=== PATIENT | male | born 1980 ===

== ENCOUNTER 2019-10-23 02:55 | Emergency (ER) | payer OTHER ==
[2019-10-23 03:58] LABS: Basophils % 0.3 % (0-1.3); Hematocrit 40.8 % (39.6-49.0); Lymphocytes % 37.1 % (15.3-44.8); MPV 8.3 fL (7.6-11.3); RBC Red Blood Cell Count 4.98 M/uL (4.33-5.43)
[2019-10-23 04:09] LABS: Protime INR 1.03
[2019-10-23 04:26] LABS: ALT/SGPT 32 U/L (12-78); AST/SGOT 28 U/L (15-37); Albumin 4.4 g/dL (3.4-5.0); Alkaline Phosphatase 71 U/L (45-117); BUN Blood Urea Nitrogen 13 mg/dL (7-18); Bicarbonate 25 mmol/L (21-32); Bilirubin Direct < 0.1 mg/dL (0-0.2); Bilirubin Total 0.4 mg/dL (0.2-1.0); Glucose Level 114 mg/dL (74-106); Potassium 4.2 mmol/L (3.5-5.1); Protein, Total 8.6 g/dL (6.4-8.2); Sodium Level 140 mmol/L (136-145)
[2019-10-23 04:33] LABS: Barbiturates NEGATIVE (NEGATIVE); Benzodiazepines NEGATIVE (NEGATIVE); Cocaine NEGATIVE (NEGATIVE); METHAMPHETAM NEGATIVE (NEGATIVE); Methadone NEGATIVE (NEGATIVE); Opiates NEGATIVE (NEGATIVE); Phencyclidine NEGATIVE (NEGATIVE); THC Cannibis NEGATIVE (NEGATIVE)
[2019-10-23 05:15] LABS: Urine Blood NEGATIVE (NEG); Urine Glucose NEGATIVE (NEG)
[2019-10-23 05:16] LABS: Urine Protein NEGATIVE (NEG)
--- NOTE | 2019-10-23 07:08 | EDPHYS ---
Physician Documentation [facility] Name: Darian Larose Jr Age: 39 yrs Sex: Male : 1980 Arrival Date: 10/23/2019 Time: 03:00 Bed 16 Private MD: ED Physician Joe Tatum HPI: 10/22 03:35 This 39 yrs old Male presents to ER via Law Enforcement with complaints of mh7 Depression.Suicidal Ideation. 03:35 The patient presents to the emergency department with depression, over a relationship, mh7 Family problems, suicide ideation, and the patient has a plan, to overdose with medications. Onset: The symptoms/episode began/occurred today. Past psychiatric history: Prior diagnosis: bipolar disorder, Psychiatric medications include: Primary psychiatric physician: the patient has had a prior suicide gesture. Associated signs and symptoms: Pertinent negatives: abdominal pain, anxiety, chest pain, chills, delusions, fever, hallucinations, headache, homicidal ideation, nausea, night sweats, palpitations, paranoia, shortness of breath, substance abuse, tremor, vomiting. Severity of symptoms: At their worst the symptoms were severe today, in the emergency department the symptoms have improved moderately. The patient has experienced similar episodes in the past, multiple times. Historical: - Allergies: 03:02 Tegretol (itching); jb4 - Home Meds: 03:02 Humulin 70/30 100 unit/mL (70-30) Sub-Q susp [Active]; Levemir 100 unit/mL subcutaneous jb4 soln [Active]; Metformin Oral [Active]; b/p meds [Active]; psych medications [Active]; - PMHx: 03:02 Diabetes - IDDM; HTN; Bipolar disorder; impulse control disorder; jb4 - PSHx: 03:02 None; jb4 - Immunization history:: Adult Immunizations up to date. - Social history:: Smoking status: Patient denies any tobacco usage or history of. Patient/guardian denies using alcohol, street drugs. ROS: 03:35 Constitutional: Negative for fever, chills, and weight loss, Eyes: Negative for injury, mh7 pain, redness, and discharge, ENT: Negative for injury, pain, and discharge, Neck: Negative for injury, pain, and swelling, Cardiovascular: Negative for chest pain, palpitations, and edema, Respiratory: Negative for shortness of breath, cough, wheezing, and pleuritic chest pain, Abdomen/GI: Negative for abdominal pain, nausea, vomiting, diarrhea, and constipation, Back: Negative for injury and pain, : Negative for injury, bleeding, discharge, and swelling, MS/Extremity: Negative for injury and deformity, Skin: Negative for injury, rash, and discoloration, Neuro: Negative for headache, weakness, numbness, tingling, and seizure, Allergy/Immunology: Negative for hives, rash, and allergies, Endocrine: Negative for neck swelling, polydipsia, polyuria, polyphagia, and marked weight changes, Hematologic/Lymphatic: Negative for swollen nodes, abnormal bleeding, and unusual bruising. Exam: 03:35 Constitutional: This is a well developed, well nourished patient who is awake, alert, mh7 and in no acute distress. Head/Face: Normocephalic, atraumatic. Eyes: Pupils equal round and reactive to light, extra-ocular motions intact. Lids and lashes normal. Conjunctiva and sclera are non-icteric and not injected. Cornea within normal limits. Periorbital areas with no swelling, redness, or edema. Neck: Trachea midline, no thyromegaly or masses palpated, and no cervical lymphadenopathy. Supple, full range of motion without nuchal rigidity, or vertebral point tenderness. No Meningismus. Chest/axilla: Normal chest wall appearance and motion. Nontender with no deformity. No lesions are appreciated. Cardiovascular: Regular rate and rhythm with a normal S1 and S2. No gallops, murmurs, or rubs. Normal PMI, no JVD. No pulse deficits. Respiratory: Lungs have equal breath sounds bilaterally, clear to auscultation and percussion. No rales, rhonchi or wheezes noted. No increased work of breathing, no retractions or nasal flaring. Abdomen/GI: Soft, non-tender, with normal bowel sounds. No distension or tympany. No guarding or rebound. No evidence of tenderness throughout. Back: No spinal tenderness. No costovertebral tenderness. Full range of motion. Skin: Warm, dry with normal turgor. Normal color with no rashes, no lesions, and no evidence of cellulitis. MS/ Extremity: Pulses equal, no cyanosis. Neurovascular intact. Full, normal range of motion. Neuro: Awake and alert, GCS 15, oriented to person, place, time, and situation. Cranial nerves II-XII grossly intact. Motor strength 5/5 in all extremities. Sensory grossly intact. Cerebellar exam normal. Normal gait. 03:35 Psych: Behavior/mood is cooperative, suicidal, depressed, Affect is calm, Oriented to person, place, time, Patient having thoughts of suicide. Plan for suicide is overdose on pills Judgement / Insight is impaired. Memory is normal. Delusions/hallucinations are not present. 06:34 ECG was reviewed by the Attending Physician. [facility] Vital Signs: 03:02 BP 136 / 104; Pulse 71; Resp 16; Temp 98.2(O); Pulse Ox 96% on R/A; Weight 138.8 kg jb4 (R); Height 6 ft. 1 in. (185.42 cm) (R); Pain 0/10; 04:00 BP 142 / 91; Pulse 77; Resp 16; Pulse Ox 97% on R/A; jb4 05:00 BP 141 / 109; Pulse 71; Resp 16; Pulse Ox 96% on R/A; jb4 06:00 BP 144 / 105; Pulse 73; Resp 16; Pulse Ox 97% on R/A; jb4 06:30 BP 133 / 94; Pulse 77; Resp 16; Pulse Ox 96% on R/A; jb4 07:00 BP 144 / 108; Pulse 77; Resp 16; Temp 98.5; Pulse Ox 96% ; bp 03:02 Body Mass Index 40.37 (138.80 kg, 185.42 cm) jb4 MDM: 03:17 Patient medically screened. [facility] 07:03 Differential diagnosis: depression, Suicidal Ideation, Substance abuse. Data reviewed: [facility] vital signs, nurses notes, lab test result(s), CBC, electrolytes, urinalysis, EKG. Data interpreted: Pulse oximetry: on room air is 96 %. Interpretation: normal. Counseling: I had a detailed discussion with the patient and/or guardian regarding: the historical points, exam findings, and any diagnostic results supporting the discharge/admit diagnosis, the presence of at least one elevated blood pressure reading (>120/80) during this emergency department visit, lab results. Response to treatment: the patient's symptoms have markedly improved after treatment. ED course: Patient to be released back into custody of correctional officers and will obtain psychiatric evaluation in their psychiatric unit.. 10/22 03:17 Order name: Acetaminophen; Complete Time: 04:42 10/22 03:17 Order name: Basic Metabolic Panel; Complete Time: 04:42 10/22 03:17 Order name: CBC with Diff; Complete Time: 04:42 10/22 03:17 Order name: ETOH Level; Complete Time: 04:42 10/22 03:17 Order name: Hepatic Function; Complete Time: 04:42 10/22 03:17 Order name: PT-INR; Complete Time: 04:42 10/22 03:17 Order name: Ptt, Activated; Complete Time: 04:42 10/22 03:17 Order name: Salicylate; Complete Time: 04:42 10/22 03:17 Order name: Urine Drug Screen; Complete Time: 04:42 10/22 03:17 Order name: EKG; Complete Time: 03:18 10/22 03:17 Order name: EKG - Nurse/Tech; Complete Time: 04:07 10/22 03:17 Order name: IV Saline Lock; Complete Time: 04:07 10/22 03:17 Order name: Labs collected and sent; Complete Time: 04:07 10/22 04:14 Order name: Urine Dipstick--Ancillary (enter results); Complete Time: 06:07 [facility] 10/22 03:17 Order name: Urine Dipstick-Ancillary (obtain specimen); Complete Time: 04:07 7 EC:34 Rate is 71 beats/min. Rhythm is regular, Normal Sinus Rhythm. QRS [place] is Normal. [place] mh7 interval is normal. QRS interval is normal. QT interval is normal. No Q waves. T waves are Normal. No ST changes noted. Clinical impression: Normal ECG. Administered Medications: No medications were administered Disposition: 10/23/19 07:06 Discharged to Home. Impression: Depression, Suicidal Ideation. - Condition is Stable. - Discharge Instructions: Major Depressive Disorder, Covh-hq-Mind. - Medication Reconciliation Form, Thank You Letter, Antibiotic Education, Prescription Opioid Use form. - Follow up: Private Physician; When: Today; Reason: Recheck today's complaints, Continuance of care, Re-evaluation by your physician. - Problem is an acute exacerbation. - Symptoms have improved. Signatures: Dispatcher [employer] EDMS Reynaldo Ochoa RN RN jb4 Alfred Mckeon RN RN bp Joe Tatum MD MD mh7 Corrections: (The following items were deleted from the chart) 08:22 07:06 10/23/2019 07:06 Discharged to Home. Impression: Depression; Suicidal Ideation. bp Condition is Stable. Forms are Medication Reconciliation Form, Thank You Letter, Antibiotic Education, Prescription Opioid Use. Follow up: Private Physician; When: Today; Reason: Recheck today's complaints, Continuance of care, Re-evaluation by your physician. Problem is an acute exacerbation. Symptoms have improved. mh7
--- NOTE | 2019-10-23 07:08 | ER ---
Nurse's Notes [facility] Name: Darian Larose Jr Age: 39 yrs Sex: Male : 1980 Arrival Date: 10/23/2019 Time: 03:00 Bed 16 Private MD: Diagnosis: Depression;Suicidal Ideation Presentation: 10/22 03:02 Chief complaint: Patient states: I have been having suicidal thoughts. I took some jb4 pills, I 2 types down before they sprayed me. I am having some family issues. Coronavirus screen: Proceed with normal triage. Ebola Screen: No symptoms or risks identified at this time. Initial Sepsis Screen: Does the patient meet any 2 criteria? No. Patient's initial sepsis screen is negative. Does the patient have a suspected source of infection? No. Patient's initial sepsis screen is negative. Risk Assessment: Do you want to hurt yourself or someone else? Patient reports no desire to harm self or others. Onset of symptoms was October 23, 2019. Transition of care: patient was not received from another setting of care. 03:02 Method Of Arrival: Law Enforcement: [place] [employer] jb4 03:02 Acuity: MURTAZA 2 jb4 Historical: - Allergies: 03:02 Tegretol (itching); jb4 - Home Meds: 03:02 Humulin 70/30 100 unit/mL (70-30) Sub-Q susp [Active]; Levemir 100 unit/mL subcutaneous jb4 soln [Active]; Metformin Oral [Active]; b/p meds [Active]; psych medications [Active]; - PMHx: 03:02 Diabetes - IDDM; HTN; Bipolar disorder; impulse control disorder; jb4 - PSHx: 03:02 None; jb4 - Immunization history:: Adult Immunizations up to date. - Social history:: Smoking status: Patient denies any tobacco usage or history of. Patient/guardian denies using alcohol, street drugs. Screenin:02 Abuse screen: Denies threats or abuse. Nutritional screening: No deficits noted. jb4 Tuberculosis screening: No symptoms or risk factors identified. Fall Risk None identified. Assessment: 03:02 General: Appears in no apparent distress. uncomfortable, Behavior is calm, cooperative, jb4 appropriate for age. Pain: Denies pain. Neuro: Level of Consciousness is awake, alert, obeys commands, Oriented to person, place, time, situation. Cardiovascular: Patient's skin is warm and dry. Respiratory: Airway is patent Respiratory effort is even, unlabored, Respiratory pattern is regular, symmetrical. GI: No signs and/or symptoms were reported involving the gastrointestinal system. : No signs and/or symptoms were reported regarding the genitourinary system. EENT: No signs and/or symptoms were reported regarding the EENT system. Derm: Skin is intact, Skin is dry, Skin is normal, Skin temperature is warm. Musculoskeletal: Circulation, motion, and sensation intact. Range of motion: intact in all extremities. 03:30 Reassessment: Asked if one hand cuff could be removed for IV insertion. Guard states " jb4 No, he is violent." Pt states " I bet I could make you shoot me right now huh" guard states " Yea I could shoot you, I know how to handle you.". 04:19 Reassessment: Patient appears in no apparent distress at this time. Patient and/or jb4 family updated on plan of care and expected duration. Pain level reassessed. Patient is alert, oriented x 3, equal unlabored respirations, skin warm/dry/pink. correctional officers remain at the bedside. 05:19 Reassessment: Patient appears in no apparent distress at this time. No changes from jb4 previously documented assessment. Patient and/or family updated on plan of care and expected duration. Pain level reassessed. Patient is alert, oriented x 3, equal unlabored respirations, skin warm/dry/pink. 06:02 Reassessment: Patient appears in no apparent distress at this time. Patient and/or jb4 family updated on plan of care and expected duration. Pain level reassessed. Patient is alert, oriented x 3, equal unlabored respirations, skin warm/dry/pink. Correctional officers remain at the bedside. 06:30 Reassessment: Patient appears in no apparent distress at this time. No changes from jb4 previously documented assessment. Patient and/or family updated on plan of care and expected duration. Pain level reassessed. 07:00 Reassessment: RECD REPORT FROM LUIS F IABRRA. 39YO WM P/W SI AND OVERDOSE FROM [facility] bp UNIT. PT MEDICALLY CLEARED FOR RETURN UNDER SUICIDE WATCH. TRANSPORT PENDING. 08:21 Reassessment: PT D/C VIA [facility] TRANSPORT. bp Psych: 03:13 Subjective: Patient's mood is sad, Delusions are denied, Hallucinations are denied jb4 Having thoughts of suicide. Objective: Patient is cooperative, Speech is normal, Affect is blunted. Interventions: PT in custody of law enforcement. Suicide Risk Assessment: Sad Person Scale: Sex of patient: Male: Score 1 point. Age of patient: Score 0 point if patient falls outside of specified age parameters. Depression: Score 1 point if signs of depression are present. Previous Attempt: Score 1 point if patient has previously attempted suicide. Substance Abuse: Score 0 point if patient does not abuse alcohol or drugs. Rational Thinking: Score 1 point if patient is lacking rational thinking. Social Support: Score 1 point if social support is lacking and/or unavailable. Organized Plan: Score 1 point if patient had a plan in place. Relationship: Score 1 point if patient is , , , or for a single male Chronic Sickness: Score 1 point if patient has illness, chronic, debilitating, or severe. TOTAL POINTS: If total points are 7-10, the proposed clinical action is to hospitalize or commit. Implement suicide precautions. Safety Checks: Personal items have been removed. Door is open. [employer] guards present. Pt denies substance abuse. Commitment: Patient will be an involuntary commitment. Vital Signs: 03:02 BP 136 / 104; Pulse 71; Resp 16; Temp 98.2(O); Pulse Ox 96% on R/A; Weight 138.8 kg jb4 (R); Height 6 ft. 1 in. (185.42 cm) (R); Pain 0/10; 04:00 BP 142 / 91; Pulse 77; Resp 16; Pulse Ox 97% on R/A; jb4 05:00 BP 141 / 109; Pulse 71; Resp 16; Pulse Ox 96% on R/A; jb4 06:00 BP 144 / 105; Pulse 73; Resp 16; Pulse Ox 97% on R/A; jb4 06:30 BP 133 / 94; Pulse 77; Resp 16; Pulse Ox 96% on R/A; jb4 07:00 BP 144 / 108; Pulse 77; Resp 16; Temp 98.5; Pulse Ox 96% ; bp 03:02 Body Mass Index 40.37 (138.80 kg, 185.42 cm) 4 ED Course: 03:00 Patient arrived in ED. ag3 03:02 Reynaldo Ochoa, RN is Primary Nurse. jb4 03:02 Arm band placed on right wrist. jb4 03:02 Patient has correct armband on for positive identification. Bed in low position. Call jb4 light in reach. Side rails up X 1. Pulse ox on. NIBP on. 03:04 Triage completed. jb4 03:08 Joe Tatum MD is Attending Physician. [facility] 03:30 Initial lab(s) drawn, by az, sent to lab. Inserted saline lock: 20 gauge in right jb4 antecubital area, using aseptic technique. Blood collected. 08:21 No provider procedures requiring assistance completed. IV discontinued, intact, bp bleeding controlled, No redness/swelling at site. Pressure dressing applied. Administered Medications: No medications were administered Outcome: 07:06 Discharge ordered by . 7 08:21 Discharged to Law Enforcement bp 08:21 Condition: stable 08:21 Discharge instructions given to patient, police, Instructed on discharge instructions, follow up and referral plans. Demonstrated understanding of instructions, follow-up care. 08:22 Patient left the ED. bp Signatures: Reynaldo Ochoa, RN RN jb Alfred Mckeon RN RN bp Layne Torres ag3 Joe Tatum MD MD [facility] Corrections: (The following items were deleted from the chart) 04:20 04:19 Reassessment: Patient appears in no apparent distress at this time. Patient jb4 and/or family updated on plan of care and expected duration. Pain level reassessed. Patient is alert, oriented x 3, equal unlabored respirations, skin warm/dry/pink. jb4
[2019-10-23 08:38] VITALS: O2SAT 96
[2019-10-23 08:40] VITALS: BP 144/108; TEMP 98.5
== END 2019-10-23 08:22 | disposition home or self-care (01) ==
LOC: ER 02:55
DX: R45.851 Suicidal ideations (principal); E11.9 Type 2 diabetes mellitus without complications; I10 Essential (primary) hypertension; F31.9 Bipolar disorder, unspecified; Z88.8 Allergy status to other drugs, medicaments and biological substances
CPT/HCPCS: 36415; 80048; 80076; 80307; 80320; 80329; 81003; 85025; 85610; 85730; 93005; 99284

== ENCOUNTER 2019-10-23 18:22 | Emergency (ER) | payer OTHER ==
--- OUTSIDE RECORDS SUMMARY | 2019-10-23 18:54 | XMS REPORT | Continuity of Care Document ---
:1980 Author Organization [facility] t Address [address] [place] [address] Care Team Providers Name Role Phone Lonnie Allen Attending Clinician Unavailable Lonnie Allen Admitting Clinician Unavailable Problems This patient has no known problems. Allergies, Adverse Reactions, Alerts This patient has no known allergies or adverse reactions. Medications This patient has no known medications. Procedures This patient has no known procedures. Results Test Description Test Time Test Comments Results Result Comments Source Chemistry - Urine 2016-12-17 09:55:00 Test Item Value Reference Range Interpretation Comme nts Chemistry - Urine (test code = 88.77 mg/dL 63-166 N NOTE: Concentration is based on a URCREAT) daily urine out put of1.5 Liters. Chemistry - [id number] 09:55:00 Test Item Value Reference Range Interpretation Comments Chemistry - Urine (test code = 121 mmol/L Not Available URNA) Chemistry - [id number] 09:55:00 Test Item Value Reference Range Interpretation Comments Chemistry - Urine (test Less than 10 mg/dL code = URTP) [id number] 08:28:00 Test Item Value Reference Range Interpretation Comments Chemistry (test code = URAC) 9.1 mg/dL 3.5-7.2 H [id number] 07:07:00 Test Item Value Reference Range Interpretation Comments Chemistry (test code 139 mmol/L 136-145 N = NA-T) Chemistry (test code 4.2 mmol/L 3.5-5.1 N = K-T) Chemistry (test code 108 mmol/L 98-107 H = CL) Chemistry (test code 22 mmol/L 22-29 N = CO2) Chemistry (test code 13 mmol/L 10-20 N = ANGP) Chemistry (test code 19 mg/dL 8.9-20.6 N = BUN) Chemistry (test code 1.38 mg/dL 0.6-1.3 H = CREATT) Chemistry (test code 71 Referen ce Range for = EGFRMDRD) Estimated GFR: Great er than 90 mL/min/1.73 m2NOTE:The MDRD equation has no t been validated for u se with theelderly (ove r 70 years of age), women, patientswith se rious comorbid condit ion or persons with ex tremes ofbody size, mu scle mass, or nutrit ional status. Chemistry (test code 13.77 = BCR) Chemistry (test code 106 mg/dL 70-105 H = GLU-T) Chemistry (test code 8.2 mg/dL 7.8-10.44 N = CA) Chemistry (test code 3.8 g/dL 3.5-5.0 N = ALB) Chemistry (test code 2.7 mg/dL 2.3-4.7 N = PHOS) [id number] 07:07:00 Test Item Value Reference Range Interpretation Comments Chemistry (test code = CK) 906 U/L 30-200 H [id number] 05:58:00 Test Item Value Reference Range Interpretation Comments Hematology (test code = WBCT) 6.4 thou/uL 4.8-10.8 N Hematology (test code = RBCT) 4.30 mill/uL 4.70-6.10 L Hematology (test code = HGBT) 12.7 g/dL 14.0-18.0 L Hematology (test code = HCTT) 38.7 % 42.0-52.0 L Hematology (test code = MCV) 90.1 fl 80.0-94.0 N Hematology (test code = MCH) 29.6 pg 27.0-31.0 N Hematology (test code = MCHC) 32.8 g/dL 32.0-36.0 N Hematology (test code = RDW) 12.3 % 11.5-14.5 N Hematology (test code = PLTT) 184 thou/uL 130-400 N Hematology (test code = MPV) 7.9 fL 7.4-10.4 N Hematology (test code = %NEUT) 43.8 % 42.0-75.0 N Hematology (test code = %LYMPH) 39.0 % 21.0-51.0 N Hematology (test code = %MONO) 10.7 % 0.0-10.0 H Hematology (test code = %EOS) 5.3 % 0.0-10.0 N Hematology (test code = %BASO) 1.3 % 0.0-1.0 H Hematology (test code = NEUT#) 2.8 thou/uL 1.40-6.50 N Hematology (test code = LYMPH#) 2.5 thou/uL 1.20-3.40 N Hematology (test code = MONO#) 0.7 thou/uL 0.11-0.59 H Hematology (test code = EOS#) 0.3 thou/uL 0.0-0.7 N Hematology (test code = BASO#) 0.1 thou/uL 0.0-0.2 N [id number] 05:46:00 Test Item Value Reference Range Interpretation Comments Urinalysis (test code = YELLOW Yellow UACLR) Urinalysis (test code = CLOUDY Clear UACLY) Urinalysis (test code = 1.021 1.002-1.036 N SPGR) Urinalysis (test code = 5.5 5.0-9.0 N SAGRARIO) Urinalysis (test code = Negative Negative UALEU) Urinalysis (test code = Negative Negative UANIT) Urinalysis (test code = 30 mg/dL Neg-Trace A PROUADIP) Urinalysis (test code = Negative mg/dL Negative GLUCU) Urinalysis (test code = Trace mg/dL Negative A KETU) Urinalysis (test code = 1.0 mg/dL 0.2-1.0 UAUROB) Urinalysis (test code = Negative Negative UABIL) Urinalysis (test code = Negative Negative UABLD) Urinalysis (test code = 0-3 HPF 0-3 UARBC) Urinalysis (test code = 0-3 HPF 0-3 UAWBC) Urinalysis (test code = 0-3 HPF 0-3 UASQUAM) Urinalysis (test code = None Seen HPF None Seen UABAC) Urinalysis (test code = RARE CA OXALATE HPF Negative UACRST) Urinalysis (test code = 11-20 HYALINE CASTS 0-3 Hyaline A UACAST) [facility] Urine Source: Urine [id number] 04:00:00 Test Item Value Reference Range Interpretation Comments Chemistry (test code 135 mmol/L 136-145 L = NA-T) Chemistry (test code 4.4 mmol/L 3.5-5.1 N = K-T) Chemistry (test code 99 mmol/L 98-107 N = CL) Chemistry (test code 17 mmol/L 22-29 L = CO2) Chemistry (test code 19 mmol/L 10-20 N = ANGP) Chemistry (test code 44 mg/dL 8.9-20.6 H = BUN) Chemistry (test code 4.48 mg/dL 0.6-1.3 H = CREATT) Chemistry (test code 18 Referen ce Range for = EGFRMDRD) Estimated GFR: Great er than 90 mL/min/1.73 m2NOTE:The MDRD equation has no t been validated for u se with theelderly (ove r 70 years of age), women, patientswith se rious comorbid condit ion or persons with ex tremes ofbody size, mu scle mass, or nutrit ional status. Chemistry (test code 121 mg/dL 70-105 H = GLU-T) Chemistry (test code 9.9 mg/dL 7.8-10.44 N = CA) Chemistry (test code 0.5 mg/dL 0.2-1.2 N = TBILI) Chemistry (test code 8.4 g/dL 6.0-8.3 H = TP) Chemistry (test code 4.8 g/dL 3.5-5.0 N = ALB) Chemistry (test code 4.2 g/dL 2.4-3.5 H = GLOB) Chemistry (test code 1.1 g/dL 1.2-2.2 L = AG) Chemistry (test code 51 U/L 40-150 N = ALP) Chemistry (test code 29 U/L 5-34 N = AST) Chemistry (test code 27 U/L 8-55 N = ALT) [id number] 04:00:00 Test Item Value Reference Range Interpretation Comments Chemistry (test code = CK) 1152 U/L 30-200 H [id number] 04:00:00 Test Item Value Reference Range Interpretation Comments Chemistry (test code = LIP) 19 U/L 8-78 N [id number] 02:34:00 Test Item Value Reference Range Interpretation Comments Hematology (test code = WBCT) 10.9 thou/uL 4.8-10.8 H Hematology (test code = RBCT) 5.31 mill/uL 4.70-6.10 N Hematology (test code = HGBT) 15.7 g/dL 14.0-18.0 N Hematology (test code = HCTT) 47.7 % 42.0-52.0 N Hematology (test code = MCV) 90.0 fl 80.0-94.0 N Hematology (test code = MCH) 29.6 pg 27.0-31.0 N Hematology (test code = MCHC) 32.9 g/dL 32.0-36.0 N Hematology (test code = RDW) 12.7 % 11.5-14.5 N Hematology (test code = PLTT) 242 thou/uL 130-400 N Hematology (test code = MPV) 8.0 fL 7.4-10.4 N Hematology (test code = %NEUT) 63.5 % 42.0-75.0 N Hematology (test code = %LYMPH) 22.7 % 21.0-51.0 N Hematology (test code = %MONO) 9.0 % 0.0-10.0 N Hematology (test code = %EOS) 3.5 % 0.0-10.0 N Hematology (test code = %BASO) 1.2 % 0.0-1.0 H Hematology (test code = NEUT#) 6.9 thou/uL 1.40-6.50 H Hematology (test code = LYMPH#) 2.5 thou/uL 1.20-3.40 N Hematology (test code = MONO#) 1.0 thou/uL 0.11-0.59 H Hematology (test code = EOS#) 0.4 thou/uL 0.0-0.7 N Hematology (test code = BASO#) 0.1 thou/uL 0.0-0.2 N Influenza A B Ag [id number] 02:12:00 Test Item Value Reference Range Interpretation Comments Influenza A B Ag The rapid Flu A B test Screen (test code = can distinguish between FLU) influenza A Influenza A B Ag follow up confirmatory Screen (test code = testing is warranted. FLU1) Influenza A B Ag FLUB N Screen (test code = FLU1) Influenza A B Ag N N Screen (test code = FLU1) [id number] 01:42:00 Test Item Value Reference Range Interpretation Comments Accuchek (test code = ACU) 154 mg/dL 70-110 H
[2019-10-23 19:17] LABS: Barbiturates NEGATIVE (NEGATIVE); Benzodiazepines NEGATIVE (NEGATIVE); Cocaine NEGATIVE (NEGATIVE); METHAMPHETAM NEGATIVE (NEGATIVE); Methadone NEGATIVE (NEGATIVE); Opiates NEGATIVE (NEGATIVE); Phencyclidine NEGATIVE (NEGATIVE); THC Cannibis NEGATIVE (NEGATIVE)
[2019-10-23 19:31] LABS: Urine Blood NEGATIVE (NEG); Urine Glucose NEGATIVE (NEG); Urine Protein NEGATIVE (NEG); Urine pH 6.5 (5.0-7.0)
[2019-10-23 19:34] LABS: Hematocrit 38.3 % (39.6-49.0); MPV 8.4 fL (7.6-11.3); RBC Red Blood Cell Count 4.61 M/uL (4.33-5.43)
[2019-10-23 19:35] LABS: Protime INR 1.05
[2019-10-23 19:54] LABS: ALT/SGPT 32 U/L (12-78); AST/SGOT 25 U/L (15-37); Albumin 4.1 g/dL (3.4-5.0); Alkaline Phosphatase 61 U/L (45-117); BUN Blood Urea Nitrogen 15 mg/dL (7-18); Bicarbonate 23 mmol/L (21-32); Bilirubin Direct < 0.1 mg/dL (0-0.2); Bilirubin Total 0.4 mg/dL (0.2-1.0); Glucose Level 103 mg/dL (74-106); Protein, Total 7.9 g/dL (6.4-8.2); Sodium Level 137 mmol/L (136-145)
--- NOTE | 2019-10-23 21:06 | EDPHYS ---
Physician Documentation [facility] Name: Darian Larose Jr Age: 39 yrs Sex: Male : 1980 Arrival Date: 10/23/2019 Time: 18:23 Bed 3 Private MD: ED Physician Db Jett HPI: 10/22 19:19 This 39 yrs old Male presents to ER via EMS with complaints of Overdose. jr8 19:19 The patient presents to the emergency department after a known overdose, that was jr8 intentional. Context: Method: the patient has a confirmed or suspected ingestion, omeprazole and Benadryl , Time: 4 hour(s) ago, Extent: took 15 of both, the OD/poisoning occurred at skilled nursing. Associated signs and symptoms: Pertinent positives: tiredness. Severity of symptoms: At their worst the symptoms were mild in the emergency department the symptoms are unchanged. It is unknown whether or not the patient has had similar symptoms in the past. The patient has been recently seen by a physician:. Patient stated that he was on suicide watch at [facility] and got a hold of pills from a friend to try and commit suicide. Complains of tiredness only. Historical: - Allergies: 18:32 Tegretol (Itching); ph - Home Meds: 18:32 B/P Meds [Active]; Humulin 70/30 100 unit/mL (70-30) Sub-Q susp [Active]; Levemir 100 ph unit/mL subcutaneous soln [Active]; Metformin Oral [Active]; psych medications [Active]; - PMHx: 18:32 Bipolar disorder; Diabetes - IDDM; HTN; IMPULSE CONTROL DISORDER; ph - PSHx: 18:32 None; ph - Immunization history:: Adult Immunizations up to date. - Social history:: Smoking status: unknown. ROS: 19:19 Eyes: Negative for injury, pain, redness, and discharge, ENT: Negative for injury, jr8 pain, and discharge, Neck: Negative for injury, pain, and swelling, Cardiovascular: Negative for chest pain, palpitations, and edema, Respiratory: Negative for shortness of breath, cough, wheezing, and pleuritic chest pain, Abdomen/GI: Negative for abdominal pain, nausea, vomiting, diarrhea, and constipation, Back: Negative for injury and pain, MS/Extremity: Negative for injury and deformity, Skin: Negative for injury, rash, and discoloration, Neuro: Negative for headache, weakness, numbness, tingling, and seizure. 19:19 Psych: Positive for suicide gesture, suicidal ideation. Exam: 19:19 Eyes: Pupils equal round and reactive to light, extra-ocular motions intact. Lids and jr8 lashes normal. Conjunctiva and sclera are non-icteric and not injected. Cornea within normal limits. Periorbital areas with no swelling, redness, or edema. ENT: Nares patent. No nasal discharge, no septal abnormalities noted. Tympanic membranes are normal and external auditory canals are clear. Oropharynx with no redness, swelling, or masses, exudates, or evidence of obstruction, uvula midline. Mucous membranes moist. Neck: Trachea midline, no thyromegaly or masses palpated, and no cervical lymphadenopathy. Supple, full range of motion without nuchal rigidity, or vertebral point tenderness. No Meningismus. Cardiovascular: Regular rate and rhythm with a normal S1 and S2. No gallops, murmurs, or rubs. Normal PMI, no JVD. No pulse deficits. Respiratory: Lungs have equal breath sounds bilaterally, clear to auscultation and percussion. No rales, rhonchi or wheezes noted. No increased work of breathing, no retractions or nasal flaring. Abdomen/GI: Soft, non-tender, with normal bowel sounds. No distension or tympany. No guarding or rebound. No evidence of tenderness throughout. Back: No spinal tenderness. No costovertebral tenderness. Full range of motion. Skin: Warm, dry with normal turgor. Normal color with no rashes, no lesions, and no evidence of cellulitis. MS/ Extremity: Pulses equal, no cyanosis. Neurovascular intact. Full, normal range of motion. Neuro: Awake and alert, GCS 15, oriented to person, place, time, and situation. Cranial nerves II-XII grossly intact. Motor strength 5/5 in all extremities. Sensory grossly intact. Cerebellar exam normal. Normal gait. 19:19 Psych: Behavior/mood is cooperative, suicidal, Affect is calm, Oriented to person, place, time, Patient having thoughts of suicide. Judgement / Insight is impaired. Memory is normal. Delusions/hallucinations are not present. 19:24 ECG was reviewed by the Attending Physician. jr8 Vital Signs: 18:25 BP 135 / 96; Pulse 82; Resp 18; Temp 97.3; Pulse Ox 97% on R/A; Weight 138.8 kg; Height ph 6 ft. 1 in. (185.42 cm); Pain 0/10; 19:21 BP 130 / 95; Pulse 79; Resp 18; Pulse Ox 100% on R/A; mg2 20:20 BP 127 / 85; Pulse 78; Resp 18; Pulse Ox 100% ; mg2 21:08 BP 139 / 94; Pulse 80; Resp 18; Pulse Ox 100% on R/A; mg2 18:25 Body Mass Index 40.37 (138.80 kg, 185.42 cm) ph MDM: 18:38 Patient medically screened. jr8 19:19 Data reviewed: vital signs, nurses notes, lab test result(s), EKG. Data interpreted: jr8 Pulse oximetry: on room air is 97 %. Interpretation: normal. Counseling: I had a detailed discussion with the patient and/or guardian regarding: the historical points, exam findings, and any diagnostic results supporting the discharge/admit diagnosis, lab results, the need for outpatient follow up, a psychiatrist. 21:04 ED course: It has been six hours since ingestion. Patient remains stable and without jr8 lab, vs, ecg abnormality. Will d/c back to [facility] . 10/22 18:25 Order name: Acetaminophen 10/22 18:25 Order name: Basic Metabolic Panel 10/22 18:25 Order name: CBC with Diff; Complete Time: 19:42 10/22 18:25 Order name: ETOH Level; Complete Time: 19:38 10/22 18:25 Order name: Hepatic Function; Complete Time: 20:02 10/22 18:25 Order name: PT-INR; Complete Time: 19:42 10/22 18:25 Order name: Ptt, Activated; Complete Time: 19:42 10/22 18:25 Order name: Salicylate; Complete Time: 19:38 10/22 18:25 Order name: Urine Drug Screen; Complete Time: 19:22 10/22 18:26 Order name: Acetaminophen Level; Complete Time: 20:02 EDUT 10/22 18:26 Order name: Basic Metabolic Panel; Complete Time: 20:02 [facility] 10/22 18:41 Order name: Glucose, Ancillary Testing; Complete Time: 19:00 EDMS 10/22 19:12 Order name: Urine Dipstick--Ancillary (enter results); Complete Time: 19:38 tt3 10/22 19:38 Order name: Glucose, Ancillary Testing; Complete Time: 19:42 EDMS 10/22 18:25 Order name: EKG; Complete Time: 18:26 ss 10/22 18:25 Order name: EKG - Nurse/Tech; Complete Time: 19:20 ss 10/22 18:25 Order name: IV Saline Lock; Complete Time: 18:35 ss 10/22 18:25 Order name: Labs collected and sent; Complete Time: 19:07 ss 10/22 18:25 Order name: Urine Dipstick-Ancillary (obtain specimen); Complete Time: 18:35 ss 10/22 20:53 Order name: EKG - Nurse/Tech; Complete Time: 21:06 jr8 10/22 21:14 Order name: Glucose, Ancillary Testing; Complete Time: 21:20 EDMS EC:24 Rate is 75 beats/min. Rhythm is regular, 1st Degree Block. QRS [place] is Normal. [place] jr8 interval is prolonged at 210 msec. QRS interval is normal at 82 msec. QT interval is normal at 433 msec. No Q waves. T waves are Normal. No ST changes noted. Clinical impression: 1st degree heart block. Interpreted by me. Reviewed by me. Administered Medications: No medications were administered Disposition: 10/23 07:06 Co-signature as Attending Physician, Db Jett MD. rn Disposition: 10/23/19 21:05 Discharged to Law Enforcement. Impression: Suicide attempt. - Condition is Stable. - Discharge Instructions: Suicidal Feelings: How to Help Yourself. - Medication Reconciliation Form, Thank You Letter, Antibiotic Education, Prescription Opioid Use form. - Follow up: Private Physician; When: 1 - 2 days; Reason: Recheck today's complaints, Continuance of care, Re-evaluation by your physician. - Problem is new. - Symptoms are unchanged. Signatures: Dispatcher [employer] [facility] Db Jett MD MD rn Smirch, Shelby, RN RN ss Juan Luis Torrez PA PA jr8 Glenna Sandoval RN RN Osorio Gleason RN RN mg2 Corrections: (The following items were deleted from the chart) 10/22 21:23 21:05 10/23/2019 21:05 Discharged to Law Enforcement. Impression: Suicide attempt. mg2 Condition is Stable. Forms are Medication Reconciliation Form, Thank You Letter, Antibiotic Education, Prescription Opioid Use. Follow up: Private Physician; When: 1 - 2 days; Reason: Recheck today's complaints, Continuance of care, Re-evaluation by your physician. Problem is new. Symptoms are unchanged. jr8
--- NOTE | 2019-10-23 21:06 | ER ---
Nurse's Notes [facility] Name: Darian Larose Jr Age: 39 yrs Sex: Male : 1980 Arrival Date: 10/23/2019 Time: 18:23 Bed 3 Private MD: Diagnosis: Suicide attempt Presentation: 10/22 18:25 Chief complaint: EMS states: Pt from [facility], reports to EMS that he took approx ph 30 Benadryl and 30 omeprazole, VSS HR 91-94, 97% RA, BP 180/86, BGL 120, 18G IV to RFA, 4 zofran administered. Coronavirus screen: Patient denies a cough. Patient denies shortness of breath or difficulty breathing. Patient denies measured and/or subjective temperature greater than 100.4F prior to today's visit. Patient denies travel on a cruise ship or to a country the [facility] currently lists as an affected area. Patient denies contact with known and/or suspected case of COVID-19. Proceed with normal triage. Ebola Screen: No symptoms or risks identified at this time. Initial Sepsis Screen: Does the patient meet any 2 criteria? No. Patient's initial sepsis screen is negative. Does the patient have a suspected source of infection? No. Patient's initial sepsis screen is negative. Risk Assessment: Do you want to hurt yourself or someone else? Patient reports desire/thoughts of hurting themselves or someone else. Provider notified. Note After questioning pt he admits to taking approx 14 Benadryl and approx 30 omeprazole. Onset of symptoms was October 23, 2019. 18:25 Method Of Arrival: EMS: [facility] 18:25 Acuity: [place]UR[place] 2 ph Historical: - Allergies: 18:32 Tegretol (Itching); ph - Home Meds: 18:32 B/P Meds [Active]; Humulin 70/30 100 unit/mL (70-30) Sub-Q susp [Active]; Levemir 100 ph unit/mL subcutaneous soln [Active]; Metformin Oral [Active]; psych medications [Active]; - PMHx: 18:32 Bipolar disorder; Diabetes - IDDM; HTN; IMPULSE CONTROL DISORDER; ph - PSHx: 18:32 None; ph - Immunization history:: Adult Immunizations up to date. - Social history:: Smoking status: unknown. Screenin:34 Abuse screen: Denies threats or abuse. Denies injuries from another. Nutritional ph screening: No deficits noted. Tuberculosis screening: No symptoms or risk factors identified. Fall Risk None identified. Assessment: 18:34 General: Appears in no apparent distress. comfortable, well groomed, Behavior is calm, ph cooperative, drowsy, quiet. Pain: Denies pain. Neuro: Level of Consciousness is awake, alert, obeys commands, Oriented to person, place, time, situation. Cardiovascular: Capillary refill < 3 seconds in bilateral fingers Patient's skin is warm and dry. Rhythm is sinus rhythm. Respiratory: Airway is patent Respiratory effort is even, unlabored, Respiratory pattern is regular, symmetrical. GI: Abdomen is round non-distended, Patient currently denies abdominal pain, nausea, vomiting. Derm: Skin is intact, is healthy with good turgor, Skin is pink, warm \T\ dry. Musculoskeletal: Circulation, motion, and sensation intact. Range of motion: intact in all extremities. 19:03 Reassessment: OMEPRAZOLE CAUSES TACHYCARDIC, AND VOMITTING. BENADRYL WOULD CAUSE SEVERE ls4 TACHYCARDIA, AGITATED, AND SEIZURES. HE WOULD ALSO BE CONFUSED AND HYPERTHERMIC. 19:04 Reassessment: OBSERVATION TIME FOR BENADRYL IS 6 TO 8 HOURS FROM TIME OF INGESTION. ls4 NAME NIALL POISON. CASE # [id number]. 19:21 :. EENT: No deficits noted. mg2 19:28 General: Appears in no apparent distress. comfortable, Behavior is calm, cooperative. mg2 Pain: Denies pain. Neuro: Level of Consciousness is awake, alert, obeys commands, Oriented to person, place, time, situation. Neuro: Reports she is sleepy. Cardiovascular: Capillary refill < 3 seconds Patient's skin is warm and dry. Respiratory: Airway is patent Respiratory effort is even, unlabored, Respiratory pattern is regular, symmetrical. GI: No signs and/or symptoms were reported involving the gastrointestinal system. EENT: No signs and/or symptoms were reported regarding the EENT system. Derm: Skin is intact, is healthy with good turgor, Skin is pink, warm \T\ dry. normal. Musculoskeletal: Circulation, motion, and sensation intact. Range of motion: intact in all extremities. 21:14 Reassessment: meal served to the patient. mg2 Vital Signs: 18:25 BP 135 / 96; Pulse 82; Resp 18; Temp 97.3; Pulse Ox 97% on R/A; Weight 138.8 kg; Height ph 6 ft. 1 in. (185.42 cm); Pain 0/10; 19:21 BP 130 / 95; Pulse 79; Resp 18; Pulse Ox 100% on R/A; mg2 20:20 BP 127 / 85; Pulse 78; Resp 18; Pulse Ox 100% ; mg2 21:08 BP 139 / 94; Pulse 80; Resp 18; Pulse Ox 100% on R/A; mg2 18:25 Body Mass Index 40.37 (138.80 kg, 185.42 cm) ph ED Course: 18:23 Patient arrived in ED. ph 18:26 Patient has correct armband on for positive identification. Bed in low position. Call 5 light in reach. quality assurance monitor chassis on. Pulse ox on. NIBP on. 18:30 Triage completed. ph 18:34 Arm band placed on. ph 18:38 Juan Luis Torrez PA is PHCP. jr8 18:38 Db Jett MD is Attending Physician. jr8 19:05 Maintain EMS IV. Dressing intact. Good blood return noted. Site clean \T\ dry. Gauge \T\ ph site: 18 G RAC. 19:21 Osorio Gleason, RN is Primary Nurse. mg2 19:29 No provider procedures requiring assistance completed. mg2 19:32 Seizure precautions initiated. Door closed. mg2 21:08 IV discontinued, intact, bleeding controlled, No redness/swelling at site. Pressure mg2 dressing applied. Administered Medications: No medications were administered Outcome: 21:05 Discharge ordered by . jr8 21:22 Discharged to Law Enforcement mg2 21:22 Condition: stable 21:22 Instructed on discharge instructions, follow up and referral plans. Demonstrated understanding of instructions, follow-up care. 21:23 Patient left the ED. mg2 Signatures: Juan Luis Torrez PA PA [id number] Glenna Sandoval RN RN [place] [id number] Osorio Gleason RN RN mg2 Cammie Patterson RN RN ls4
[2019-10-24 08:28] VITALS: TEMP 97.3
[2019-10-24 08:29] VITALS: O2SAT 100
[2019-10-24 08:31] VITALS: BP 139/94
--- NOTE | 2019-10-24 10:15 | EKG ---
Test Date: 2019-10-23 Test Time: 20:59:21 Tv Host: MG MEASUREMENT RESULTS: Intervals: Rate: 68 [place]: 242 QRSD: 80 QT: 394 QTc: 418 [place]: P: 61 [place]: 242 QRS: 21 T: 28 INTERPRETIVE STATEMENTS: Sinus rhythm with sinus arrhythmia with 1st degree AV block Anterior infarct, age undetermined Abnormal ECG Compared to ECG 10/23/2019 03:51:02 Myocardial infarct finding now present Electronically Signed On 10-24-19 10:13:50 CDT by Jeremiah Peralta
--- NOTE | 2019-10-24 10:15 | EKG ---
Test Date: 2019-10-23 Test Time: 19:14:44 [employer]: MEASUREMENT RESULTS: Intervals: Rate: 75 AL: 210 QRSD: 82 QT: 388 QTc: 433 [place]: P: 58 AL: 210 QRS: 15 T: 27 INTERPRETIVE STATEMENTS: Sinus rhythm with 1st degree AV block Anterior infarct, age undetermined Abnormal ECG Compared to ECG 10/23/2019 03:51:02 Myocardial infarct finding now present Electronically Signed On 10-24-19 10:13:52 CDT by Jeremiah Peralta
== END 2019-10-23 21:23 ==
LOC: ER 18:22
DX: T14.91XA Suicide attempt, initial encounter (principal); T45.0X2A Poisoning by antiallergic and antiemetic drugs, intentional self-harm, initial encounter; Y92.9 Unspecified place or not applicable; Y93.9 Activity, unspecified; E11.9 Type 2 diabetes mellitus without complications; I10 Essential (primary) hypertension; F31.9 Bipolar disorder, unspecified
CPT/HCPCS: 36415; 80048; 80076; 80307; 80320; 80329; 81003; 82947; 85025; 85610; 85730; 93005; 99284